=== PATIENT | male | born 1995 | race Caucasian/White ===

== ENCOUNTER 2018-07-15 09:29 | Emergency (ER) | payer BC ==
[2018-07-15 09:38] VITALS: BP 142/89
--- NOTE | 2018-07-15 10:32 | RADIOLOGY IMAGING REPORT ---
FACILITY: [facility] PATIENT NAME: Conrado Hernandez : 1995 MR: [id number] V: [id number] EXAM DATE: ORDERING PHYSICIAN: PRATIMA NETTLES TECHNOLOGIST: Location: [facility] - [place] Patient: Conrado Hernandez : 1995 Visit/Account:[id number] Date of Sevice: 07/15/2018 Exam type: ANKLE 2 VIEW LEFT History: Twisted ankle, lateral pain and swelling Comparison: None. Findings: Two views of the left ankle reveals mild soft tissue swelling. There is no gross evidence of acute f racture or dislocation. If symptoms persist follow-up imaging is recommended IMPRESSION: 1. No gross evidence of acute fracture-dislocation involving the left ankle on this limited two-view study Mild soft tissue swelling Report Dictated By: Ramona Curtis MD at 07/15/2018 9:59 AM Report E-Signed By: Ramona Curtis MD at 07/15/2018 10:26 AM WSN:[email or web address]
--- NOTE | 2018-07-15 10:48 | ER Report ---
History and Physical Time Seen By MD: 10:48 Hx. of Stated Complaint: LEFT ANKLE PAIN Allergies: Coded Allergies: amoxicillin (Verified Allergy, Unknown, 07/15/18) clavulanic acid (Verified Allergy, Unknown, 07/15/18) Home Meds No Active Prescriptions or Reported Meds Constitutional Vital Sign - Last 24 Hours 07/15/18 09:38 Temp 97.4 Pulse 84 Resp 20 B/P (MAP) 142/89 Pulse Ox 94 O2 Delivery Room Air Depart Departure Latest Vital Signs Vital Signs Date Time Temp Pulse Resp B/P (MAP) Pulse Ox O2 Delivery O2 Flow Rate FiO2 07/15/18 09:38 97.4 84 20 142/89 94 Room Air Condition: Stable Disposition: HOME OR SELF-CARE New Scripts No Active Prescriptions or Reported Meds REJI CHANDLER Jul 15, 2018 10:48
--- NOTE | 2018-07-15 10:55 | ER Report ---
History and Physical Time Seen By MD: 09:40 Hx. of Stated Complaint: LEFT ANKLE PAIN HPI/ROS CHIEF COMPLAINT: Left ankle pain HISTORY OF PRESENT ILLNESS: Otherwise healthy 22 amounts walking down stairs and rolled his left ankle laterally did not fall to the ground of head or neck trauma pain in the left lateral malleoli no other complaints noted REVIEW OF SYSTEMS: Respiratory: No cough, no dyspnea. Cardiovascular: No chest pain, no palpitations. Gastrointestinal: No vomiting, no abdominal pain. Musculoskeletal: Ankle pain Remainder of the 14 system rev: Yes Allergies: Coded Allergies: amoxicillin (Verified Allergy, Unknown, 07/15/18) clavulanic acid (Verified Allergy, Unknown, 07/15/18) Home Meds No Active Prescriptions or Reported Meds Reviewed Nurses Notes: Yes Constitutional Vital Signs Date Time Temp Pulse Resp B/P (MAP) Pulse Ox O2 Delivery O2 Flow Rate FiO2 07/15/18 09:38 97.4 84 20 142/89 94 Room Air Physical Exam General appearance: Alert no distress. Respiratory: Chest is non tender, lungs are clear to auscultation. Cardiac: Regular rate and rhythm [ ] Ankle examination pain to palpation the left lateral malleoli in the inferior aspect distal to the malleolus no pain with flexion some pain with eversion no pain to the medial malleoli and up into the base of 5th metatarsal neurovascular intact otherwise unremarkable DIFFERENTIAL DIAGNOSIS: After history and physical exam differential diagnosis was considered for left ankle sprain versus fracture Medical Decision Making ED Course/Re-evaluation ED Course 22-year-old male presents with left ankle pain x-rays show no obvious signs of fractures dislocation subluxation patient will be put on an fabiano wrap rest ice compress elevate for the next 5-7 days and ibuprofen otherwise unremarkable be discharged Decision to Disposition Date: Jul 15, 2018 Decision to Disposition Time: 10:54 Depart Departure Latest Vital Signs Vital Signs Date Time Temp Pulse Resp B/P (MAP) Pulse Ox O2 Delivery O2 Flow Rate FiO2 07/15/18 09:38 97.4 84 20 142/89 94 Room Air Impression: Primary Impression: Ankle sprain Condition: Improved Disposition: HOME OR SELF-CARE New Scripts No Active Prescriptions or Reported Meds Patient Instructions: Ankle Sprain (DC) SHARAD INMAN MD Jul 15, 2018 10:55
== END 2018-07-15 10:55 | disposition home or self-care (01) ==
LOC: ER 10:40
DX: S93.402A Sprain of unspecified ligament of left ankle, initial encounter (principal)
CPT/HCPCS: 99283